=== PATIENT | male | born 1975 | race African-American/Black ===

== ENCOUNTER 2023-10-12 09:36 | Inpatient (IN) ==
[2023-10-12] MEDS ORDERED: LORazepam 2 mg VIAL 1 ml ONE (09:41)
[2023-10-12] MEDS ORDERED: Lorazepam PYXIS KEY PRN ×2 (09:41→11:38)
[2023-10-12] MEDS: LORazepam 2 mg VIAL 1 ml IV PUSH ONE (09:45)
[2023-10-12] MEDS: Acetaminophen IV 1 GM/100ML 1,000 MG/100 ML BAG IV ONE (10:05)
[2023-10-12 10:27] LABS: Hematocrit 19.7 % (38-53); Hemoglobin 6.6 g/dL (13.2-16.3); Mean Corpuscular Hemoglobin 30.8 pg (27-33); Mean Corpuscular Hgb Conc 33.5 g/dL (31-36); Mean Corpuscular Volume 91.9 fL (80-97); Red Blood Count 2.14 10^6/uL (4.06-5.63); Red Cell Distribution Width 14.2 % (12-17); White Blood Count 4.4 10^3/uL (3.6-10.2)
[2023-10-12] MEDS: cefTRIAXone 2 gm/50 mL D5W 2 GM/50 ML BAG IV ONE (10:28)
[2023-10-12 10:31] LABS: INR 2.55 (0.83-1.13)
[2023-10-12] MEDS ORDERED: Acyclovir IV 500 MG/10 ML VIAL IVPB ONE (10:34)
[2023-10-12 10:48] LABS: ABS Lymphocytes 0.2 10^3/uL (1.0-4.8); ABS Monocytes 0.2 10^3/uL (0.0-1.1); Lymphocyte % 4.5 %; Mean Platelet Volume 9.4 fL (7.5-11.2); Nucleated Red Blood Cells % 0.1 %/100WBC (0.0-0.8); Platelet Count 47 10^3/uL (150-450)
[2023-10-12] MEDS: Valproic Acid IV 1,000 MG in NS 0.9% 100 ml BAG 100 ML IVPB ONE (10:50)
[2023-10-12 11:17] LABS: C Reactive Protein 6.05 mg/L (<8.01)
[2023-10-12] MEDS ORDERED: Atropine 0.1 MG/ML 10 ml SYR (1 mg) ONE (11:30)
[2023-10-12] MEDS ORDERED: LORazepam 2 mg VIAL 1 ml IV PUSH PRN (11:38)
[2023-10-12 13:20] LABS: Urine Appearance Clear; Urine Bilirubin Negative (Negative); Urine Blood 1+ (Negative); Urine Color Light-Yellow; Urine Glucose Negative (Negative); Urine Ketones 2+ (Negative); Urine Nitrite Negative (Negative); Urine Protein Trace (Negative); Urine Specific Gravity 1.016 (1.002-1.030); Urine Urobilinogen Negative (Negative); Urine pH 5.5 (5.0-8.0)
[2023-10-12 13:21] LABS: Urine Bacteria Absent /HPF (Absent); Urine Red Blood Cell Trace(0-2/hpf) /HPF (0-Trace); Urine Squamous Epithelial Cell Present /HPF (Absent); Urine White Blood Cell Trace(0-5/hpf) /HPF (0-Trace)
[2023-10-12] MEDS: levETIRAcetam IV 1,500 MG in NS 0.9% 100 ml BAG 100 ML IVPB ONE (13:27)
[2023-10-12 13:35] LABS: Urine Benzodiazepine Screen Presumptive Positive (None Detect); Urine Cannabinoids Screen None Detected (None Detect); Urine Opiates Screen None Detected (None Detect)
[2023-10-12 14:55] LABS: ABS Lymphocytes 0.8 10^3/uL (1.0-4.8); ABS Monocytes 0.6 10^3/uL (0.0-1.1); ABS Neutrophils 8.7 10^3/uL (1.5-7.6); ABS Nucleated RBC 0.02 10^3/ul; Hematocrit 37.8 % (38-53); Hemoglobin 13.2 g/dL (13.2-16.3); Lymphocyte % 7.8 %; Mean Corpuscular Hemoglobin 31.4 pg (27-33); Mean Corpuscular Hgb Conc 34.9 g/dL (31-36); Mean Corpuscular Volume 89.8 fL (80-97); Mean Platelet Volume 10.1 fL (7.5-11.2); Nucleated Red Blood Cells % 0.2 %/100WBC (0.0-0.8); Platelet Count 90 10^3/uL (150-450); Red Cell Distribution Width 14.3 % (12-17); White Blood Count 10.2 10^3/uL (3.6-10.2)
[2023-10-12 14:57] LABS: PCO2 Arterial 30 mmHg (35-45); PO2 Arterial 92 mmHg (80-100)
[2023-10-12 15:04] LABS: Platelet Count 94 10^3/ul (150-450)
[2023-10-12 15:09] LABS: Activated Partial Thrombo Time 29.5 seconds (26.0-38.0); INR 1.28 (0.83-1.13)
[2023-10-12 15:19] LABS: High Sensitivity Troponin 1 Hr 38 pg/mL (<20)
[2023-10-12 15:23] LABS: Acetaminophen < 15 mcg/mL; Salicylate < 2.50 mg/dL (<30)
[2023-10-12 15:30] LABS: Schistocytes ABSENT
[2023-10-12] MEDS ORDERED: Vancomycin per Pharmacy 1 EA NOTE FOLLOW UP PRN (15:33)
[2023-10-12] MEDS: Midazolam 2 mg/2 ml VIAL 1 mg/ml 2 ml VIAL (2 mg) ONE (16:21)
[2023-10-12] MEDS: Midazolam 2 mg/2 ml VIAL 1 mg/ml 2 ml VIAL (2 mg) IV SLOW PU ONE (16:21)
[2023-10-12 16:48] LABS: Albumin 3.7 g/dL (3.2-5.2); Albumin/Globulin Ratio 1.5 (1-3); Calcium 8.3 mg/dL (8.6-10.3); Creatinine, Serum 1.13 mg/dL (0.67-1.17); Globulin 2.5 g/dL (2-4); Magnesium 2.2 mg/dL (1.9-2.7); Potassium 3.9 mmol/L (3.5-5.0); Total Bilirubin 0.7 mg/dL (0.2-1.0); Total Protein 6.2 g/dL (6.4-8.9); eGFR CKD-EPI 81.7 (>60)
[2023-10-12 17:01] LABS: Prolactin 8.5 ng/mL (1.0-20.0)
[2023-10-12] MEDS: levETIRAcetam 1000MG IVPREMIX 1,000 MG/100 ML BAG IVPB SCH (17:14)
[2023-10-12] MEDS: Lidocaine 2% PF 5 ML VIAL ONE (17:36)
[2023-10-12] MEDS: Vancomycin 1,500 MG in NS 0.9% 250 ml 250 ML IVPB ONE (17:36)
[2023-10-12] MEDS: NS 0.9% 1000 ml BAG 1,000 ML IV SCH (18:20)
[2023-10-12] MEDS: Enoxaparin 40 MG/0.4 ML SYR ONE (18:28)
[2023-10-12] MEDS: Enoxaparin 40 MG/0.4 ML SYR SUBCUT SCH ×2 (18:28→20:40)
[2023-10-12] MEDS: Valproic Acid IV 1,000 MG in NS 0.9% 100 ml BAG 100 ML IVPB SCH (20:51)
[2023-10-12] MEDS ORDERED: Vancomycin 1,000 MG VIAL IVPB SCH (21:00)
[2023-10-12] MEDS: cefTRIAXone 2 gm/50 mL D5W 2 GM/50 ML BAG IV SCH (22:31)
[2023-10-13] MEDS: Valproic Acid IV 500 MG in NS 0.9% 100 ML IVPB SCH (04:21)
[2023-10-13] MEDS: Vancomycin 1,250 MG in NS 0.9% 250 ml 250 ML IVPB SCH (05:30)
[2023-10-13 06:03] LABS: ABS Lymphocytes 1.4 10^3/uL (1.0-4.8); ABS Monocytes 0.8 10^3/uL (0.0-1.1); ABS Neutrophils 5.3 10^3/uL (1.5-7.6); ABS Nucleated RBC 0.01 10^3/ul; Hematocrit 34.6 % (38-53); Lymphocyte % 18.8 %; Mean Corpuscular Hemoglobin 31.2 pg (27-33); Mean Corpuscular Hgb Conc 34.7 g/dL (31-36); Mean Corpuscular Volume 89.8 fL (80-97); Mean Platelet Volume 10.2 fL (7.5-11.2); Nucleated Red Blood Cells % 0.1 %/100WBC (0.0-0.8); Platelet Count 83 10^3/uL (150-450); Red Blood Count 3.85 10^6/uL (4.06-5.63); Red Cell Distribution Width 14.2 % (12-17); White Blood Count 7.6 10^3/uL (3.6-10.2)
[2023-10-13 06:15] LABS: Calcium 7.4 mg/dL (8.6-10.3); Creatinine, Serum 1.04 mg/dL (0.67-1.17); Magnesium 2.1 mg/dL (1.9-2.7); Potassium 3.7 mmol/L (3.5-5.0); eGFR CKD-EPI 90.2 (>60)
[2023-10-13 15:34] LABS: Body Fluid Source Cerebral Spinal
[2023-10-13 15:48] LABS: CSF Body Fluid WBC 0 /mcL
[2023-10-13 15:49] LABS: Body Fluid Appearance Clear; Body Fluid Color Colorless; CSF Tube # 3
[2023-10-13] MEDS: levETIRAcetam 1000MG IVPREMIX 1,000 MG/100 ML BAG IVPB SCH (16:05)
[2023-10-13 17:51] LABS: CSF Glucose 47 mg/dL (40-70)
[2023-10-14 04:59] LABS: ABS Lymphocytes 1.8 10^3/uL (1.0-4.8); ABS Monocytes 0.6 10^3/uL (0.0-1.1); ABS Neutrophils 3.6 10^3/uL (1.5-7.6); ABS Nucleated RBC 0.01 10^3/ul; Hematocrit 34.9 % (38-53); Lymphocyte % 29.1 %; Mean Corpuscular Hemoglobin 30.9 pg (27-33); Mean Corpuscular Hgb Conc 34.4 g/dL (31-36); Mean Corpuscular Volume 89.9 fL (80-97); Mean Platelet Volume 10.1 fL (7.5-11.2); Nucleated Red Blood Cells % 0.1 %/100WBC (0.0-0.8); Platelet Count 76 10^3/uL (150-450); Red Blood Count 3.89 10^6/uL (4.06-5.63); Red Cell Distribution Width 14.3 % (12-17); White Blood Count 6.1 10^3/uL (3.6-10.2)
[2023-10-14 05:20] LABS: Calcium 7.7 mg/dL (8.6-10.3); Creatinine, Serum 0.89 mg/dL (0.67-1.17); Magnesium 2.2 mg/dL (1.9-2.7); Potassium 3.8 mmol/L (3.5-5.0); eGFR CKD-EPI 107.7 (>60)
[2023-10-14] MEDS: Vancomycin Trough Check NOTE FOLLOW UP ONE (11:48)
[2023-10-14 16:03] VITALS: BP 120/64
== END 2023-10-14 18:45 | DRG 23 ==
LOC: ED 09:36 → EDHOLD 11:26 → ICU 12:30
PROVIDERS: ADMIT Internal Medicine Critical Care Medicine; ATTEND Internal Medicine Critical Care Medicine

== ENCOUNTER 2024-03-31 08:25 | Inpatient (IN) ==
[2024-03-31] MEDS ORDERED: LORazepam 2 mg VIAL 1 ml ONE (08:35)
[2024-03-31] MEDS ORDERED: Lorazepam PYXIS KEY PRN ×2 (08:35→15:46)
[2024-03-31] MEDS: LORazepam 2 mg VIAL 1 ml IV PUSH ONE ×2 (08:39→15:48)
[2024-03-31] MEDS: levETIRAcetam 1000MG IVPREMIX 1,000 MG/100 ML BAG IVPB ONE (08:57)
[2024-03-31] MEDS: Acetaminophen IV 1 GM/100ML 1,000 MG/100 ML BAG IV ONE (08:57)
[2024-03-31 09:00] LABS: Hematocrit 37.8 % (38-53); Hemoglobin 12.8 g/dL (13.2-16.3); Mean Corpuscular Hemoglobin 30.8 pg (27-33); Mean Corpuscular Hgb Conc 33.9 g/dL (31-36); Mean Corpuscular Volume 91.1 fL (80-97); Red Blood Count 4.15 10^6/uL (4.06-5.63); Red Cell Distribution Width 15.6 % (12-17); White Blood Count 8.6 10^3/uL (3.6-10.2)
[2024-03-31 09:01] LABS: INR 1.12 (0.85-1.14)
[2024-03-31] MEDS: Lactated Ringers 1000 ml BAG 1,000 ML IV ONE ×3 (09:04→11:55)
[2024-03-31 09:18] LABS: ABS Lymphocytes 0.3 10^3/uL (1.0-4.8); ABS Monocytes 0.5 10^3/uL (0.0-1.1); ABS Neutrophils 7.7 10^3/uL (1.5-7.6); ABS Nucleated RBC 0.01 10^3/ul; Lymphocyte % 3.8 %; Mean Platelet Volume 10.6 fL (7.5-11.2); Nucleated Red Blood Cells % 0.2 %/100WBC (0.0-0.8); Platelet Count 98 10^3/uL (150-450)
[2024-03-31] MEDS: Valproic Acid IV 1,000 MG in NS 0.9% 100 ml BAG 100 ML IVPB ONE (09:59)
[2024-03-31 10:25] LABS: Albumin 3.9 g/dL (3.2-5.2); Albumin/Globulin Ratio 1.4 (1-3); Calcium 9.4 mg/dL (8.6-10.3); Creatinine, Serum 1.11 mg/dL (0.67-1.17); Globulin 2.7 g/dL (2-4); Magnesium 1.9 mg/dL (1.9-2.7); Total Bilirubin 0.5 mg/dL (0.2-1.0); Total Protein 6.6 g/dL (6.4-8.9); eGFR CKD-EPI 82.9 (>60)
[2024-03-31] MEDS: Piperacillin/Tazobac 3.375 BAG 3.375 GM/100 ML BAG IV ONE (14:14)
[2024-03-31] MEDS: LORazepam 2 MG/ML 1 mL Syringe IV ONE (15:10)
[2024-03-31] MEDS ORDERED: Atropine 0.1 MG/ML 10 ml SYR (1 mg) ONE (15:46)
[2024-03-31] MEDS: levETIRAcetam 500 MG IVPREMIX 500 MG/100 ML BAG IV SCH (16:35)
[2024-03-31] MEDS: levETIRAcetam 500 MG IVPREMIX 500 MG/100 ML BAG IV ONE (16:39)
[2024-03-31] MEDS ORDERED: Lidocaine 2% PF 5 ML VIAL ONE (16:52)
[2024-03-31] MEDS: Acetaminophen IV 1 GM/100ML 1,000 MG/100 ML BAG IV PRN (16:55)
[2024-03-31] MEDS: Atropine 0.1 MG/ML 10 ml SYR (1 mg) IV PUSH ONE (17:24)
[2024-03-31] MEDS ORDERED: Vancomycin per Pharmacy 1 EA NOTE FOLLOW UP PRN (18:26)
[2024-03-31] MEDS ORDERED: Azithromycin 500 mg/250 ml NS 500 MG/250 ML BAG IVPB SCH (18:30)
[2024-03-31] MEDS: cefTRIAXone 2 gm/50 mL D5W 2 GM/50 ML BAG IV SCH (18:43)
[2024-03-31] MEDS: Ampicillin ADVAN 2 GM in NS 0.9% 100 ml BAG 100 ML IVPB SCH (20:06)
[2024-03-31] MEDS: ACYCLOVIR IVPB SCH (20:15)
[2024-03-31] MEDS: NS 0.9% IVPB SCH (20:15)
[2024-03-31] MEDS: Vancomycin 1,500 MG in NS 0.9% 250 ml 250 ML IVPB ONE (20:41)
[2024-03-31] MEDS ORDERED: Valproic Acid IV 100 MG/ML 5 ML VIAL (500 MG) IVPB SCH (21:00)
[2024-03-31] MEDS ORDERED: levETIRAcetam 1000MG IVPREMIX 1,000 MG/100 ML BAG IVPB SCH (21:00)
[2024-03-31] MEDS: Heparin 5000 UNITS/ML 1 mL VIAL SUBCUT ONE (21:17)
[2024-03-31 21:24] LABS: HIV 4th Generation Nonreactive (Nonreactive)
[2024-03-31] MEDS: Valproic Acid IV 1,000 MG in NS 0.9% 100 ml BAG 100 ML IVPB SCH (21:37)
[2024-03-31] MEDS: levETIRAcetam 1000MG IVPREMIX 1,000 MG/100 ML BAG IVPB SCH (21:38)
[2024-04-01 05:09] LABS: ABS Lymphocytes 1.5 10^3/uL (1.0-4.8); ABS Monocytes 0.6 10^3/uL (0.0-1.1); ABS Neutrophils 4.1 10^3/uL (1.5-7.6); ABS Nucleated RBC 0.01 10^3/ul; Hematocrit 33.4 % (38-53); Hemoglobin 11.4 g/dL (13.2-16.3); Lymphocyte % 24.5 %; Mean Corpuscular Hemoglobin 30.6 pg (27-33); Mean Corpuscular Hgb Conc 34.3 g/dL (31-36); Mean Corpuscular Volume 89.3 fL (80-97); Mean Platelet Volume 10.8 fL (7.5-11.2); Nucleated Red Blood Cells % 0.1 %/100WBC (0.0-0.8); Platelet Count 94 10^3/uL (150-450); Red Blood Count 3.74 10^6/uL (4.06-5.63); Red Cell Distribution Width 15.5 % (12-17); White Blood Count 6.3 10^3/uL (3.6-10.2)
[2024-04-01 05:15] LABS: Albumin 2.9 g/dL (3.2-5.2); Albumin/Globulin Ratio 1.3 (1-3); Creatinine, Serum 0.83 mg/dL (0.67-1.17); Globulin 2.2 g/dL (2-4); Magnesium 1.8 mg/dL (1.9-2.7); Potassium 3.6 mmol/L (3.5-5.0); Total Bilirubin 0.7 mg/dL (0.2-1.0); Total Protein 5.1 g/dL (6.4-8.9); eGFR CKD-EPI 109.3 (>60)
[2024-04-01 07:03] LABS: Urine Appearance Clear; Urine Bilirubin Negative (Negative); Urine Blood Negative (Negative); Urine Color Light-Yellow; Urine Glucose Negative (Negative); Urine Ketones 1+ (Negative); Urine Nitrite Negative (Negative); Urine Protein Negative (Negative); Urine Specific Gravity 1.027 (1.002-1.030); Urine Urobilinogen Negative (Negative); Urine pH 6.5 (5.0-8.0)
[2024-04-01 07:16] LABS: Urine Benzodiazepine Screen Presumptive Positive (None Detect); Urine Cannabinoids Screen None Detected (None Detect); Urine Opiates Screen None Detected (None Detect)
[2024-04-01] MEDS: Potassium Chlor 20 meq TAB.ER PO ONE (08:32)
[2024-04-01] MEDS: Magnesium Sulfate 2 gm BAG 2 GM/50 ML BAG IVPB ONE (08:36)
[2024-04-01] MEDS: Vancomycin 1,250 MG in NS 0.9% 250 ml 250 ML IVPB SCH (09:34)
[2024-04-01] MEDS: Enoxaparin 100 MG/ML SYR SUBCUT SCH (11:16)
[2024-04-01] MEDS: Azithromycin 500 mg/250 ml NS 500 MG/250 ML BAG IVPB SCH (13:22)
[2024-04-01] MEDS ORDERED: cefTRIAXone 1 gm/50 mL D5W 1 GM/50 ML BAG IV SCH (18:00)
[2024-04-01] MEDS ORDERED: LEVETIRACETAM 1000 MG PO SCH (21:00)
[2024-04-02 06:50] LABS: ABS Monocytes 0.7 10^3/uL (0.0-1.1); ABS Neutrophils 3.8 10^3/uL (1.5-7.6); ABS Nucleated RBC 0.01 10^3/ul; Hematocrit 35.4 % (38-53); Hemoglobin 12.1 g/dL (13.2-16.3); Lymphocyte % 31.2 %; Mean Corpuscular Hgb Conc 34.1 g/dL (31-36); Mean Corpuscular Volume 90.7 fL (80-97); Mean Platelet Volume 10.9 fL (7.5-11.2); Nucleated Red Blood Cells % 0.1 %/100WBC (0.0-0.8); Platelet Count 88 10^3/uL (150-450); Red Blood Count 3.91 10^6/uL (4.06-5.63); Red Cell Distribution Width 15.1 % (12-17); White Blood Count 6.5 10^3/uL (3.6-10.2)
[2024-04-02 07:03] LABS: Calcium 8.2 mg/dL (8.6-10.3); Creatinine, Serum 0.91 mg/dL (0.67-1.17); Potassium 3.6 mmol/L (3.5-5.0); eGFR CKD-EPI 105.3 (>60)
[2024-04-02] MEDS ORDERED: Vancomycin Trough Check NOTE FOLLOW UP ONE (08:30)
[2024-04-02] MEDS: Magnesium Sulfate 2 gm BAG 2 GM/50 ML BAG IVPB ONE (11:21)
[2024-04-02 12:33] LABS: TSH Ultra Thyroid Stim Horm 4.04 mcIU/mL (0.34-5.60)
[2024-04-03 09:07] LABS: ABS Lymphocytes 1.8 10^3/uL (1.0-4.8); ABS Monocytes 0.7 10^3/uL (0.0-1.1); ABS Neutrophils 4.2 10^3/uL (1.5-7.6); ABS Nucleated RBC 0.01 10^3/ul; Eosinophil % 0.3 %; Hemoglobin 12.5 g/dL (13.2-16.3); Lymphocyte % 26.6 %; Mean Corpuscular Hemoglobin 31.1 pg (27-33); Mean Corpuscular Hgb Conc 34.7 g/dL (31-36); Mean Corpuscular Volume 89.6 fL (80-97); Mean Platelet Volume 11.1 fL (7.5-11.2); Nucleated Red Blood Cells % 0.1 %/100WBC (0.0-0.8); Platelet Count 89 10^3/uL (150-450); Red Blood Count 4.02 10^6/uL (4.06-5.63); Red Cell Distribution Width 15.4 % (12-17); White Blood Count 6.7 10^3/uL (3.6-10.2)
[2024-04-03 09:11] LABS: Calcium 7.9 mg/dL (8.6-10.3); Creatinine, Serum 0.82 mg/dL (0.67-1.17); Magnesium 1.9 mg/dL (1.9-2.7); Potassium 3.7 mmol/L (3.5-5.0); eGFR CKD-EPI 109.7 (>60)
[2024-04-03] MEDS: Magnesium Sulfate 2 gm BAG 2 GM/50 ML BAG IVPB ONE (11:23)
[2024-04-03 14:32] LABS: C Reactive Protein 11.63 mg/L (<8.01)
[2024-04-04 06:19] LABS: ABS Monocytes 0.6 10^3/uL (0.0-1.1); ABS Neutrophils 3.3 10^3/uL (1.5-7.6); ABS Nucleated RBC 0.01 10^3/ul; Eosinophil % 0.4 %; Hematocrit 36.4 % (38-53); Hemoglobin 12.6 g/dL (13.2-16.3); Lymphocyte % 33.1 %; Mean Corpuscular Hgb Conc 34.5 g/dL (31-36); Mean Corpuscular Volume 89.9 fL (80-97); Mean Platelet Volume 10.2 fL (7.5-11.2); Nucleated Red Blood Cells % 0.1 %/100WBC (0.0-0.8); Platelet Count 84 10^3/uL (150-450); Red Blood Count 4.05 10^6/uL (4.06-5.63); Red Cell Distribution Width 15.5 % (12-17)
[2024-04-04 06:49] LABS: Calcium 7.9 mg/dL (8.6-10.3); Creatinine, Serum 0.93 mg/dL (0.67-1.17); Potassium 3.8 mmol/L (3.5-5.0); eGFR CKD-EPI 102.6 (>60)
[2024-04-04 17:16] VITALS: BP 141/80
== END 2024-04-04 18:42 | DRG 23 ==
LOC: ED 08:25 → SUATTDRO 15:41 → EDHOLD 15:41 → ICU 16:57 → MEDTELE 04-01 12:33
PROVIDERS: ADMIT Internal Medicine; ATTEND Internal Medicine